=== PATIENT | male | born 1985 | race Caucasian/White ===

== ENCOUNTER 2020-10-19 18:32 | Emergency (ER) | payer MEDICARE, MEDICAID ==
[~2020-10-19] VITALS: Ht 22.9 cm; Wt 63.6 kg
[2020-10-19 19:00] VITALS: BP 112/71
[2020-10-19] MEDS ORDERED: KEFLEX500 M1 PO (19:06)
[2020-10-19] MEDS ORDERED: BACTRIM DS1 TAB PO (19:06)
== END 2020-10-19 19:30 | disposition home or self-care (01) ==
LOC: ED 18:32
DX: L02.415 Cutaneous abscess of right lower limb (principal); F31.9 Bipolar disorder, unspecified